=== PATIENT | male | born 1995 | race Caucasian/White ===

== ENCOUNTER 2018-02-15 19:15 | Emergency (ER) | payer BC ==
[2018-02-15] MEDS ORDERED: Clindamycin HCl 150 MG Cap PO ONE (19:51)
--- NOTE | 2018-02-15 19:56 | EDM.PDOC ---
ED HPI GENERAL MEDICAL PROBLEM - General Chief Complaint: Abdominal Pain Stated Complaint: DISCHARGE FROM [facility] [id number] Time Seen by Provider: 02/15/18 19:52 Source of Information: Reports: Patient History Limitations: Reports: No Limitations - History of Present Illness INITIAL COMMENTS - FREE TEXT/NARRATIVE: c/o stuff coming out of belly button. - Related Data Allergies Allergy/AdvReac Type Severity Reaction Status Date / Time No Known Allergies Allergy Verified 01/02/14 22:38 Home Meds: Home Meds . [No Known Home Meds] 01/02/14 [History] Past Medical History - Past Health History Medical/Surgical History: Denies Medical/Surgical History ED ROS GENERAL - Review of Systems Review Of Systems: ROS reveals no pertinent complaints other than HPI. ED EXAM, GI/ABD - Physical Exam Exam: See Below Exam Limited By: No Limitations General Appearance: Alert, WD/WN, No Apparent Distress Ears: Hearing Grossly Normal Throat/Mouth: Normal Voice, No Airway Compromise Head: Atraumatic Neck: Non-Tender, Full Range of Motion Respiratory/Chest: No Respiratory Distress Cardiovascular: Regular Rate, Rhythm GI/Abdominal Exam: Soft, Non-Tender, Other (umbilicus with minor local inflammation, no gross exudate, no cellulitis no grossly palpable abscess). No : Distended, Guarding, Rigid, Rebound, Tender, Abnormal Bowel Sounds Neurological: Alert, Oriented, Normal Cognition, Normal Gait, No Motor/Sensory Deficits Psychiatric: Normal Affect, Normal Mood Skin Exam: Warm, Dry, Normal Color Lymphatic: No Adenopathy Course - Vital Signs Last Recorded V/S: Last Vital Signs Temp 37.4 C 02/15/18 19:47 Pulse 110 H 02/15/18 19:47 Resp 16 02/15/18 19:47 BP 206/94 H 02/15/18 19:47 Pulse Ox 100 02/15/18 19:47 - Orders/Labs/Meds Orders: Active Orders 24 hr Category Date Time Status Clindamycin HCl [Cleocin] Med 02/15/18 19:51 Once 150 mg PO ONETIME ONE Departure - Departure Time of Disposition: 19:54 Disposition: Home, Self-Care 01 Condition: Good Clinical Impression: Omphalitis in adult - Discharge Information Instructions: Omphalitis, Pediatric Forms: ED Department Discharge Additional Instructions: 1) keep area clean and dry 2) wash area daily 3) follow up at clinic rx given; clindamycin 150mg qid x 40 - My Orders Last 24 Hours: My Active Orders 02/15/18 19:51 Clindamycin HCl [Cleocin] 150 mg PO ONETIME ONE - Assessment/Plan Last 24 Hours: My Active Orders 02/15/18 19:51 Clindamycin HCl [Cleocin] 150 mg PO ONETIME ONE
== END 2018-02-15 20:01 | disposition home or self-care (01) ==
LOC: DL.ED 19:15
DX: L08.82 Omphalitis not of newborn (principal)
CPT/HCPCS: 99283; A9270